=== PATIENT | female | born 1980 | race Caucasian/White ===

== ENCOUNTER 2017-11-24 08:20 | Inpatient (IN) | payer SELFPAY ==
[2017-11-24] MEDS ORDERED: Ondansetron 4 MG/2 ML SDV IVPUSH PRN (08:49)
[2017-11-24] MEDS ORDERED: Nalbuphine 20 MG/ML 1 ML Syringe IVPUSH PRN (08:49)
[2017-11-24] MEDS ORDERED: Sodium Chloride 0.9% 10 ML Syringe FLUSH PRN (08:49)
[2017-11-24] MEDS ORDERED: Oxytocin/Lactated Ringers 10 UNIT/1,000 ML BAG IV SCH ×2 (09:00→10:56)
[2017-11-24] MEDS ORDERED: Lactated Ringers 1,000 ML IV SCH (09:00)
--- NOTE | 2017-11-24 09:28 | PCM.LDHP ---
L&D History of Present Illness - General Date of Service: 11/24/17 Admit Problem/Dx: Patient Status Order with Admit Dx/Problem 11/24/17 08:49 Patient Status [ADT] Routine Admission Diagnosis/Problem Admission Diagnosis/Problem Normal labor Source of Information: Patient History Limitations: Reports: No Limitations - History of Present Illness Introduction:: Janett Garcia is a 36 year old at 40 weeks 5 days by 22 week ultrasound who presents for labor. She reports that she started to have more frequent contractions last evening that were about every 15 minutes apart but were not overly painful and she was able to sleep through the night. This morning when she woke up her contractions were approximately every 2-3 minutes and were more painful. They were lasting approximately 60 seconds at that time. She denies any leaking of fluid but did have bright red blood mixed with the vaginal mucus. She reports that she has felt movement but that it has been somewhat decreased for the last day or so. She denies any significant problems with her asthma and has not been using her inhaler regularly. Timing/Duration: Reports: gradual onset, getting worse Location, : Reports: Abdomen, Pelvic, Uterus Quality: Reports: Throbbing Severity: Moderate Improves with: Reports: None Worsens with: Reports: None Associated Symptoms: Reports: vaginal bleeding, mild amount. Denies: vaginal discharge, vaginal fluid Present Illness Comments:: Janett Garcia is a 36-year-old who presented with spontaneous labor this morning. She has had routine care since her first visit at 22 weeks gestational age with myself. Review of her labs show O+ blood type with negative antibody screen. Her CBC showed a hematocrit of 37.3 and hemoglobin of 13.3 with platelets of 205. She had a negative Pap smear. She is rubella immune. Her RPR, hepatitis B surface antigen and HIV were all negative. Her urine culture was negative. Gonorrhea and Chlamydia test were both negative. Her anatomy ultrasound was normal on 07/31/2017. Repeat check for her CBC on 08/18/2017 showed a hematocrit of 35.8 and hemoglobin of 12.1 with platelets of 189. Her 1 hour glucose tolerance screen was 113. Her GBS was negative. Her has been complicated by advanced maternal age and declined genetic testing, asthma that has at times been somewhat uncontrolled during the but is well controlled at this time, history of depression and was started on Lexapro and her mood has been good on this medication. She received TDaP and 09/25/2017. She also had a history of an unexplained stillbirth at 24 weeks gestational age but declined monitoring during this . Past Medical History Respiratory History: Reports: Asthma L[employer]GR[employer]ER History: Reports: : 6 Para: 4 (4104, stillbirth at 24 WGA in second ) Psychiatric History: Reports: Depression () Social & Family History - Tobacco Use Smoking Status *Q: Former Smoker (stopped in ) Tobacco Use Within Last Twelve Months: Cigarettes - Tobacco Core Measures Tobacco Use/Smoking Within Last 30 Days: No - Alcohol Use Alcohol Use History: No - Sexual History Sexual History: Reports: Single Partner - Living Situation & Occupation Living situation: Reports: H&P Review of Systems - Review of Systems: Review Of Systems: See Below General: Denies: Fever, Chills, Malaise, Weakness, Fatigue HEENT: Denies: Rhinitis, Post Nasal Drip, Sinus Congestion, Sore Throat, Visual Changes Pulmonary: Denies: Shortness of Breath, Wheezing, Cough Cardiovascular: Denies: Chest Pain, Palpitations Gastrointestinal: Reports: Diarrhea. Denies: Abdominal Pain, Constipation, Nausea, Vomiting Genitourinary: Denies: Dysuria, Frequency, Burning, Pain, Urgency Musculoskeletal: Denies: Back Pain, Joint Pain, Muscle Pain Skin: Denies: Rash, Lesions Psychiatric: Denies: Depression, Anxiety Neurological: Denies: Headache Hematologic/Lymphatic: Denies: Anemia, Easy Bleeding, Easy Bruising L&D Exam - Exam Exam: See Below - OB Specific Contraction Duration (sec): 60 Contraction Frequency (min): 2-3 Contraction Intensity: Moderate Movement: Active Heart Tones: Present Heart Tones per Min: 155 (+15 x 15 accelerations, occasional variable decelerations) Heart Rate (FHR) Variability: Moderate (6-25 bmp) Presentation: Vertex Estimated Weight: 7.5-8 by Eder's - Johns Score Johns Score Cervix Position: Anterior Johns Score Consistency: Soft Johns Score Effacement: >80% Johns Score Dilation: > 5 cm (5) Johns Score 's Station: -2 Johns Score Total: 11 - Exam General: Alert, Oriented HEENT: Conjunctiva Clear, EOMI Neck: Supple, Trachea Midline Lungs: Clear to Auscultation, Normal Respiratory Effort Cardiovascular: Regular Rate, Regular Rhythm GI/Abdominal Exam: Soft, Non-Tender, No Distention. No: Guarding, Rigid, Rebound Genitourinary: Normal external exam Back Exam: Normal Inspection, Full Range of Motion Extremities: Normal Inspection, Pedal Edema (Trace) Skin: Warm, Dry, Intact Psychiatric: Alert, Normal Affect, Normal Mood - Patient Data Lab Results Last 24 hrs: Laboratory Results - last 24 hr 11/24/17 Range/Units 09:05 WBC 13.83 H (3.98-10.04) K/mm3 RBC 4.13 (3.98-5.22) M/mm3 Hgb 12.8 (11.2-15.7) gm/L Hct 37.8 (34.1-44.9) % MCV 91.5 (79.4-94.8) fl MCH 31.0 (25.6-32.2) pg MCHC 33.9 (32.2-35.5) g/dl RDW Std Deviation 46.2 (36.4-46.3) fL Plt Count 166 L (182-369) K/mm3 MPV 10.9 (9.4-12.3) fl Neut % (Auto) 82.4 H (34.0-71.1) % Lymph % (Auto) 9.9 L (19.3-51.7) % Graham % (Auto) 6.5 (4.7-12.5) % Eos % (Auto) 0.8 (0.7-5.8) Baso % (Auto) 0.1 (0.1-1.2) % Neut # (Auto) 11.39 H (1.56-6.13) K/mm3 Lymph # (Auto) 1.37 (1.18-3.74) K/mm3 Graham # (Auto) 0.90 H (0.24-0.36) K/mm3 Eos # (Auto) 0.11 (0.04-0.36) K/mm3 Baso # (Auto) 0.02 (0.01-0.08) K/mm3 Result Diagrams: 11/24/17 09:05 - Problem List (1) 40 weeks gestation of SNOMED Code(s): 83642708 ICD Code: Z3A.40 - 40 WEEKS GESTATION OF Status: Acute Current Visit: Yes (2) Advanced maternal age in multigravida SNOMED Code(s): 074010001 ICD Code: O09.529 - SUPERVISION OF ELDERLY MULTIGRAVIDA, UNSPECIFIED TRIMESTER Status: Acute Current Visit: Yes (3) Asthma affecting in third trimester SNOMED Code(s): 209440705, 620422874 ICD Code: O99.513 - DISEASES OF THE RESP SYS COMP , THIRD TRIMESTER ; J45.909 - UNSPECIFIED ASTHMA, UNCOMPLICATED Status: Acute Current Visit: Yes (4) Late care affecting SNOMED Code(s): 245072995 ICD Code: O09.30 - SUPRVSN OF PREG W INSUFFICIENT ANTENAT CARE, UNSP TRIMESTER Status: Acute Current Visit: Yes (5) History of depression, currently SNOMED Code(s): 921283748 ICD Code: O99.89 - OTH DISEASES AND CONDITIONS COMPL PREG/CHLDBRTH; Z86.59 - PERSONAL HISTORY OF OTHER MENTAL AND BEHAVIORAL DISORDERS Status: Acute Current Visit: Yes Problem List Initiated/Reviewed/Updated: Yes Orders Last 24hrs: Active Orders 24 hr Category Date Time Status Patient Status [ADT] Routine ADT 11/24/17 08:49 Active Activity as Tolerated [RC] PFP Care 11/24/17 08:49 Active Communication Order [RC] ASDIRECTED Care 11/24/17 08:49 Active Heart Tones [RC] ASDIRECTED Care 11/24/17 08:50 Active Non Stress Test [RC] PER UNIT ROUTINE Care 11/24/17 08:49 Active Notify Provider [RC] PFP Care 11/24/17 08:49 Active Notify Provider [RC] PRN Care 11/24/17 08:49 Active Peripheral IV Care [RC] . DIRECTED Care 11/24/17 08:50 Active Vital Signs [RC] PER UNIT ROUTINE Care 11/24/17 08:49 Active CBC WITH AUTO DIFF [HEME] Stat Lab 11/24/17 09:05 Results DRUG SCREEN, URINE [URCHEM] Stat Lab 11/24/17 08:49 Ordered RAPID PLASMA REAGIN,RPR [CHEM] Stat Lab 11/24/17 09:05 Received UA W/O MICROSCOPIC [URIN] Stat Lab 11/24/17 08:49 Ordered Lactated Ringers [Ringers, Lactated] 1,000 ml Med 11/24/17 09:00 Pending IV ASDIRECTED Lidocaine 1% [Xylocaine 1%] Med 11/24/17 08:49 Once 20 ml INJECT ONETIME ONE Nalbuphine [Nubain] Med 11/24/17 08:49 Ordered 10 mg IVPUSH Q2H PRN Ondansetron [Zofran] Med 11/24/17 08:49 Ordered 4 mg IVPUSH Q4H PRN Oxytocin/Lactated Ringers [Pitocin in LR 10 Units/1,000 Med 11/24/17 09:00 Ordered ML] 10 unit in 1,000 ml IV .CONTINUOUS Sodium Chloride 0.9% [Saline Flush] Med 11/24/17 08:49 Ordered 10 ml FLUSH ASDIRECTED PRN Electronic Heart Tones Ext w TOCO [WOMSER] Oth 11/24/17 08:49 Ordered Routine Electronic Heart Tones Internal [WOMSER] Per Unit Oth 11/24/17 08:49 Ordered Routine Peripheral IV Insertion Adult [OM.PC] Routine Oth 11/24/17 08:49 Ordered Resuscitation Status Routine Resus Stat 11/24/17 08:49 Ordered Medication Orders Lactated Ringer's (Ringers, Lactated) 1,000 mls @ 100 mls/hr IV ASDIRECTED MAGAN Oxytocin/Lactated Ringer's (Pitocin In Lr 10 Units/1,000 Ml) 10 unit in 1,000 mls @ 500 mls/hr IV .CONTINUOUS MAGAN Lidocaine HCl (Xylocaine 1%) 20 ml INJECT ONETIME ONE Stop: 11/24/17 08:50 Nalbuphine HCl (Nubain) 10 mg IVPUSH Q2H PRN PRN Reason: pain Ondansetron HCl (Zofran) 4 mg IVPUSH Q4H PRN PRN Reason: Nausea/Vomiting Sodium Chloride (Saline Flush) 10 ml FLUSH ASDIRECTED PRN PRN Reason: Keep Vein Open Assessment/Plan Comment:: At time of cervical exam the patient was 5/90/-2/soft/anterior. There was a bulging bag of water with the contraction that the patient was having. Artificial rupture membranes was performed with the AmniHook with return of clear fluid. Mom and baby tolerated procedure well without any difficulty. We will continue to monitor how patient's labor is progressing without augmentation with Pitocin for several hours and if no cervical change then we' ll start her on Pitocin for augmentation of labor. Refer to observation for spontaneous labor with cervical dilation of 5 cm Start Pitocin for augmentation of labor if no cervical change in 3-[address] IV and have Lactated Ringer's at 125 ml/hr May have small amounts of regular diet Activity as tolerated May have epidural as desired Plans to bottle feed after delivery Albuterol inhaler as needed for asthma Anticipate vaginal delivery unless otherwise indicated Alex Liang M.D. 9:38 AM 11/24/2017
[2017-11-24] MEDS ORDERED: Oxytocin/Lactated Ringers 10 UNIT/1,000 ML BAG IV ONE (10:12)
--- NOTE | 2017-11-24 10:39 | PCM.SN ---
- Free Text/Narrative Note: Stage I: Janett Garcia was admitted for spontaneous labor. On admission her cervix was dilated to 5 cm. She was GBS negative. She had artificial rupture membranes with clear fluid. She progressed to complete and pushing. Stage II: On 11/24/2017 she had a normal vaginal delivery of a live female infant at 1019. Apgars of 8 & 9. Weight of 3570 g (7 lbs 14 oz). Length of 20.5 inches. There was a single nuchal cord that was reduced prior to delivery. was delivered in NATASHA position. The cord was doubly clamped and cut by father of the infant. Infant was placed on mother's abdomen. Stage III: She had a spontaneous delivery of an intact placenta in Roland presentation. Three vessel cord. She was given pitocin and fundal massage. She had first-degree midline perineal laceration at the vaginal introitus that was hemostatic and not repaired and a abrasion to the left labia minora that was also hemostatic and not repaired. Mom and baby were stable to recovery. EBL of 150 mL. Alex Liang MD 10:38 AM 11/24/2017
[2017-11-24] MEDS ORDERED: Acetaminophen 325 MG Tab PO PRN (10:56)
[2017-11-24] MEDS ORDERED: Benzocaine/Menthol 20%-0.5% Spray 56 GM Canister TOP PRN (10:56)
[2017-11-24] MEDS ORDERED: Lanolin 100% Cream 7 GM Tube TOP PRN (10:56)
[2017-11-24] MEDS ORDERED: Witch Hazel Medicated Pads 100/Jar TOP PRN (10:56)
[2017-11-24] MEDS ORDERED: Magnesium Hydroxide 400 MG/5 ML Susp 30 ML Cup PO PRN (10:56)
[2017-11-24] MEDS ORDERED: Hydrocortisone Acetate 25 MG Supp RECTAL PRN (10:56)
[2017-11-24] MEDS ORDERED: Docusate Sodium 100 MG Cap PO PRN (10:56)
[2017-11-24] MEDS ORDERED: Lidocaine 1% 50 ML MDV INJECT ONE (13:00)
[2017-11-24] MEDS: Ibuprofen 600 MG Tab PO PRN ×2 (15:20→22:10)
[2017-11-25] MEDS: Ibuprofen 600 MG Tab PO PRN ×2 (04:27→11:53)
[2017-11-25] MEDS ORDERED: Cyclobenzaprine 10 MG Tab PO PRN (08:36)
--- NOTE | 2017-11-25 08:50 | PCM.SN ---
- Free Text/Narrative Note: Post Progress Note PPD # 1 Subjective: Doing well overall. Ambulating without difficulty. Lochia minimal. Voiding without difficulty. Tolerating regular diet without nausea or vomiting. Pain minimal and able to be controlled with oral medications. She reports that she does have some pain when she tightens her abdominal muscles on the left side of her abdomen. Bottle feeding with minimal difficulty. Objective: Vitals: Vital Signs - 24 hr 11/24/17 11/24/17 11/24/17 09:02 09:30 10:54 Temperature Pulse, 83 68 Peripheral Respiratory Rate Blood Pressure 112/64 O2 Sat by Pulse Oximetry 11/24/17 11/24/17 11/24/17 11:00 11:31 12:00 Temperature Pulse, 84 79 74 Peripheral Respiratory Rate Blood Pressure 112/80 128/69 116/78 O2 Sat by Pulse Oximetry 11/24/17 11/24/17 11/25/17 15:24 20:01 04:22 Temperature 37.0 C 37.1 C 36.8 C Pulse, 94 63 58 L Peripheral Respiratory 16 16 16 Rate Blood Pressure 110/68 116/73 107/70 O2 Sat by Pulse 98 99 98 Oximetry Physical Exam General: Alert and oriented, no acute distress Lungs: Clear to auscultation bilaterally Heart: Regular rate and rhythm Abdomen: Soft, minimal appropriate tenderness, non-distended, fundus midline, nontender, and at the umbilicus Extremities: Trace edema in bilateral lower extremities to mid shins Laboratory Tests 11/24/17 11/24/17 11/24/17 Range/Units 09:05 09:05 13:40 WBC 13.83 H (3.98-10.04) K/mm3 RBC 4.13 (3.98-5.22) M/mm3 Hgb 12.8 (11.2-15.7) gm/L Hct 37.8 (34.1-44.9) % MCV 91.5 (79.4-94.8) fl MCH 31.0 (25.6-32.2) pg MCHC 33.9 (32.2-35.5) g/dl RDW Std Deviation 46.2 (36.4-46.3) fL Plt Count 166 L (182-369) K/mm3 MPV 10.9 (9.4-12.3) fl Neut % (Auto) 82.4 H (34.0-71.1) % Lymph % (Auto) 9.9 L (19.3-51.7) % Edgar % (Auto) 6.5 (4.7-12.5) % Eos % (Auto) 0.8 (0.7-5.8) Baso % (Auto) 0.1 (0.1-1.2) % Neut # (Auto) 11.39 H (1.56-6.13) K/mm3 Lymph # (Auto) 1.37 (1.18-3.74) K/mm3 Edgar # (Auto) 0.90 H (0.24-0.36) K/mm3 Eos # (Auto) 0.11 (0.04-0.36) K/mm3 Baso # (Auto) 0.02 (0.01-0.08) K/mm3 Manual Slide Review Abnormal smear Urine Opiates Screen Negative (NEGATIVE) Ur Buprenorphine Scrn Negative (NEGATIVE) Ur Oxycodone Screen Negative (NEGATIVE) Urine Methadone Screen Negative (NEGATIVE) Ur Propoxyphene Screen Negative (NEGATIVE) Ur Barbiturates Screen Negative (NEGATIVE) Ur Tricyclics Screen Negative (NEGATIVE) Ur Phencyclidine Scrn Negative (NEGATIVE) Ur Amphetamine Screen Negative (NEGATIVE) U Methamphetamines Scrn Negative (NEGATIVE) U Benzodiazepines Scrn Negative (NEGATIVE) U Cocaine Metab Screen Negative (NEGATIVE) U Marijuana (THC) Screen Negative (NEGATIVE) RPR Non-reactive (NONREACTIVE) ASSESSMENT: 36-year-old female G 6 P 5105 s/p normal vaginal delivery PPD #1, complicated by asthma, history of depression, advanced maternal age and declined genetic screening, late care PLAN: Doing well Bottle feeding with minimal difficulty. Assist as needed Lochia minimal. Continue to monitor for appropriate lochia. Continue routine care We will give her a dose of cyclobenzaprine 10 mg this morning to see if this helps with her abdominal muscle pain Anticipate discharge home today Alex Liang MD 8:49 AM 11/25/2017
--- NOTE | 2017-11-25 08:53 | PCM.DCSUM1 ---
Discharge Summary - Hospital Course Free Text/Narrative:: Stage I: Janett Garcia was admitted for spontaneous labor. On admission her cervix was dilated to 5 cm. She was GBS negative. She had artificial rupture membranes with clear fluid. She progressed to complete and pushing. Stage II: On 11/24/2017 she had a normal vaginal delivery of a live female at 1019. Apgars of 8 & 9. Weight of 3570 g (7 lbs 14 oz). Length of 20.5 inches. There was a single nuchal cord that was reduced prior to delivery. Infant was delivered in NATASHA position. The cord was doubly clamped and cut by father of the . Infant was placed on mother's abdomen. Stage III: She had a spontaneous delivery of an intact placenta in Roland presentation. Three vessel cord. She was given pitocin and fundal massage. She had first-degree midline perineal laceration at the vaginal introitus that was hemostatic and not repaired and a abrasion to the left labia minora that was also hemostatic and not repaired. Mom and baby were stable to recovery. EBL of 150 mL. HPI Initial Comments: Stage I: Janett Garcia was admitted for spontaneous labor. On admission her cervix was dilated to 5 cm. She was GBS negative. She had artificial rupture membranes with clear fluid. She progressed to complete and pushing. Stage II: On 11/24/2017 she had a normal vaginal delivery of a live female infant at 1019. Apgars of 8 & 9. Weight of 3570 g (7 lbs 14 oz). Length of 20.5 inches. There was a single nuchal cord that was reduced prior to delivery. Infant was delivered in NATASHA position. The cord was doubly clamped and cut by father of the infant. Infant was placed on mother's abdomen. Stage III: She had a spontaneous delivery of an intact placenta in Roland presentation. Three vessel cord. She was given pitocin and fundal massage. She had first-degree midline perineal laceration at the vaginal introitus that was hemostatic and not repaired and a abrasion to the left labia minora that was also hemostatic and not repaired. Mom and baby were stable to recovery. EBL of 150 mL. Brief History: Stage I: Janett Garcia was admitted for spontaneous labor. On admission her cervix was dilated to 5 cm. She was GBS negative. She had artificial rupture membranes with clear fluid. She progressed to complete and pushing. Stage II: On 11/24/2017 she had a normal vaginal delivery of a live female infant at 1019. Apgars of 8 & 9. Weight of 3570 g (7 lbs 14 oz). Length of 20.5 inches. There was a single nuchal cord that was reduced prior to delivery. Infant was delivered in NATASHA position. The cord was doubly clamped and cut by father of the infant. Infant was placed on mother's abdomen. Stage III: She had a spontaneous delivery of an intact placenta in Roland presentation. Three vessel cord. She was given pitocin and fundal massage. She had first- degree midline perineal laceration at the vaginal introitus that was hemostatic and not repaired and a abrasion to the left labia minora that was also hemostatic and not repaired. Mom and baby were stable to recovery. EBL of 150 mL. Diagnosis: Stroke: No - Discharge Data Discharge Date: 11/25/17 Discharge Disposition: Home, Self-Care 01 Condition: Good - Discharge Diagnosis/Problem(s) (1) 40 weeks gestation of SNOMED Code(s): 66078487 ICD Code: Z3A.40 - 40 WEEKS GESTATION OF Status: Acute Current Visit: Yes (2) Advanced maternal age in multigravida SNOMED Code(s): 797494475 ICD Code: O09.529 - SUPERVISION OF ELDERLY MULTIGRAVIDA, UNSPECIFIED TRIMESTER Status: Acute Current Visit: Yes (3) Asthma affecting in third trimester SNOMED Code(s): 698224673, 660453829 ICD Code: O99.513 - DISEASES OF THE RESP SYS COMP , THIRD TRIMESTER ; J45.909 - UNSPECIFIED ASTHMA, UNCOMPLICATED Status: Acute Current Visit: Yes (4) Late care affecting SNOMED Code(s): 471781842 ICD Code: O09.30 - SUPRVSN OF PREG W INSUFFICIENT ANTENAT CARE, UNSP TRIMESTER Status: Acute Current Visit: Yes (5) History of depression, currently SNOMED Code(s): 922621594 ICD Code: O99.89 - OTH DISEASES AND CONDITIONS COMPL PREG/CHLDBRTH; Z86.59 - PERSONAL HISTORY OF OTHER MENTAL AND BEHAVIORAL DISORDERS Status: Acute Current Visit: Yes (6) Vaginal delivery SNOMED Code(s): 806139121 ICD Code: O80 - ENCOUNTER FOR FULL-TERM UNCOMPLICATED DELIVERY Status: Acute Current Visit: Yes (7) First degree perineal laceration during delivery SNOMED Code(s): 404879075 ICD Code: O70.0 - FIRST DEGREE PERINEAL LACERATION DURING DELIVERY Status: Acute Current Visit: Yes - Patient Summary/Data Complications: None Consults: None Hospital Course: Janett Garcia was admitted for spontaneous labor. On admission her cervix was dilated to 5 cm. She was GBS negative. She had artificial rupture of membranes with clear fluid. She progressed to complete and began pushing. On 11/24/2017 she had a normal vaginal delivery of a live female infant at 1019. Apgars of 8 & 9. Weight of 3570 g (7 lbs. 14 oz.). Her course was uneventful. Her pain was well controlled and she had minimal lochia. She was ambulating, tolerating a regular diet and voiding normally. She was bottle feeding. She was afebrile and her hematocrit was 37.8 on admission. She desired to be discharged home on the morning of PPD #1. Her blood type is O positive. - Patient Instructions Diet: Regular Diet as Tolerated Activity: Apply Ice, As Tolerated Activity, Other: Nothing in the vagina for 6 weeks Driving: May Drive Today Showering/Bathing: May Shower Notify Provider of: Fever, Increased Pain, Swelling and Redness, Drainage, Nausea and/or Vomiting Other/Special Instructions: Contact our office if you have heavy vaginal bleeding enough to soak a pad in less than an hour for several hours. - Discharge Plan *PRESCRIPTION DRUG MONITORING PROGRAM REVIEWED*: Not Applicable *COPY OF PRESCRIPTION DRUG MONITORING REPORT IN PATIENT LILLIE: Not Applicable Home Medications: Home Meds Albuterol [Proventil Neb Soln] 2 puff .ROUTE DAILY PRN 11/24/17 [History] Cyclobenzaprine HCl 1 tab PO DAILY 11/24/17 [History] Escitalopram Oxalate 1 tab PO DAILY 11/24/17 [History] Montelukast [Singulair] 1 tab PO DAILY 11/24/17 [History] Vit W-Ca,Fe,FA(<1 mg) [ Vitamins] 1 tab PO DAILY 11/24/17 [ History] Acetaminophen [Tylenol] 650 mg PO Q6H PRN tablet 11/25/17 [Rx] Benzocaine/Menthol [Dermoplast Pain Relief [place]] 1 spray TOP ASDIRECTED PRN canister 11/25/17 [Rx] Docusate Sodium [Colace] 100 mg PO BID PRN cap 11/25/17 [Rx] Hydrocortisone Acetate [Anucort-HC] 25 mg RECTAL BID PRN supp 11/25/17 [Rx] Ibuprofen [Motrin] 600 mg PO Q6H PRN tablet 11/25/17 [Rx] Lanolin [Lansinoh HPA] 1 applic TOP ASDIRECTED PRN tube 11/25/17 [Rx] Witch Colette [Tucks] 1 pad TOP ASDIRECTED PRN pad 11/25/17 [Rx] Patient Handouts: What You Need to Know About Formula Feeding, Home Care Instructions for Mom, Vaginal Delivery, Care After Referrals: Alex Liang MD [Primary Care Provider] - (Follow-up for visit in 3 -6 weeks.) - Patient Data Vitals - Most Recent: Last Vital Signs Temp 36.8 C 11/25/17 04:22 Pulse 58 L 11/25/17 04:22 Resp 16 11/25/17 04:22 BP 107/70 11/25/17 04:22 Pulse Ox 98 11/25/17 04:22 Weight - Most Recent: 102.058 kg Lab Results - Last 24 hrs: Laboratory Results - last 24 hr 11/24/17 11/24/17 11/24/17 Range/Units 09:05 09:05 13:40 WBC 13.83 H (3.98-10.04) K/mm3 RBC 4.13 (3.98-5.22) M/mm3 Hgb 12.8 (11.2-15.7) gm/L Hct 37.8 (34.1-44.9) % MCV 91.5 (79.4-94.8) fl MCH 31.0 (25.6-32.2) pg MCHC 33.9 (32.2-35.5) g/dl RDW Std Deviation 46.2 (36.4-46.3) fL Plt Count 166 L (182-369) K/mm3 MPV 10.9 (9.4-12.3) fl Neut % (Auto) 82.4 H (34.0-71.1) % Lymph % (Auto) 9.9 L (19.3-51.7) % [place] % (Auto) 6.5 (4.7-12.5) % Eos % (Auto) 0.8 (0.7-5.8) Baso % (Auto) 0.1 (0.1-1.2) % Neut # (Auto) 11.39 H (1.56-6.13) K/mm3 Lymph # (Auto) 1.37 (1.18-3.74) K/mm3 [place] # (Auto) 0.90 H (0.24-0.36) K/mm3 Eos # (Auto) 0.11 (0.04-0.36) K/mm3 Baso # (Auto) 0.02 (0.01-0.08) K/mm3 Manual Slide Review Abnormal smear Urine Opiates Screen Negative (NEGATIVE) Ur Buprenorphine Scrn Negative (NEGATIVE) Ur Oxycodone Screen Negative (NEGATIVE) Urine Methadone Screen Negative (NEGATIVE) Ur Propoxyphene Screen Negative (NEGATIVE) Ur Barbiturates Screen Negative (NEGATIVE) Ur Tricyclics Screen Negative (NEGATIVE) Ur Phencyclidine Scrn Negative (NEGATIVE) Ur Amphetamine Screen Negative (NEGATIVE) U Methamphetamines Scrn Negative (NEGATIVE) U Benzodiazepines Scrn Negative (NEGATIVE) U Cocaine Metab Screen Negative (NEGATIVE) U Marijuana (THC) Screen Negative (NEGATIVE) RPR Non-reactive (NONREACTIVE) Med Orders - Current: Current Medications Acetaminophen (Tylenol) 650 mg PO Q6H PRN PRN Reason: mild pain or fever Last Admin: 11/24/17 20:05 Dose: 650 mg Benzocaine/Menthol (Dermoplast Pain Relief [place]) 0 gm TOP ASDIRECTED PRN PRN Reason: Perineal Comfort Measure Last Admin: 11/24/17 11:45 Dose: 1 can Cyclobenzaprine HCl (Flexeril) 10 mg PO TID PRN PRN Reason: Muscle Spasm Docusate Sodium (Colace) 100 mg PO BID PRN PRN Reason: Constipation Emollient Ointment (Lansinoh Hpa) 0 gm TOP ASDIRECTED PRN PRN Reason: Sore Nipples Hydrocortisone Acetate (Anucort-Hc) 25 mg RECTAL BID PRN PRN Reason: Hemorrhoid pain Oxytocin/Lactated Ringer's (Pitocin In Lr 10 Units/1,000 Ml) 10 unit in 1,000 mls @ 100 mls/hr IV TITRATE MAGAN; Protocol Ibuprofen (Motrin) 600 mg PO Q6H PRN PRN Reason: Mild pain or fever Last Admin: 11/25/17 04:27 Dose: 600 mg Magnesium Hydroxide (Milk Of Magnesia) 30 ml PO BEDTIME PRN PRN Reason: Constipation Witch Colette (Tucks) 1 pad TOP ASDIRECTED PRN PRN Reason: Hemorrhoid pain Last Admin: 11/24/17 11:45 Dose: 1 jar Discontinued Medications Lactated Ringer's (Ringers, Lactated) 1,000 mls @ 100 mls/hr IV ASDIRECTED MAGAN Last Admin: 11/24/17 09:15 Dose: 999 mls/hr Oxytocin/Lactated Ringer's (Pitocin In Lr 10 Units/1,000 Ml) 10 unit in 1,000 mls @ 500 mls/hr IV .CONTINUOUS MAGAN Last Admin: 11/24/17 10:19 Dose: 500 mls/hr Oxytocin/Lactated Ringer's (Pitocin In Lr 10 Units/1,000 Ml) Confirm Administered Dose 10 unit in 1,000 mls @ as directed IV .STK-MED ONE Stop: 11/24/17 10:13 Last Admin: 11/24/17 14:12 Dose: Not Given Lidocaine HCl (Xylocaine 1%) 20 ml INJECT ONETIME ONE Stop: 11/24/17 13:01 Nalbuphine HCl (Nubain) 10 mg IVPUSH Q2H PRN PRN Reason: pain Ondansetron HCl (Zofran) 4 mg IVPUSH Q4H PRN PRN Reason: Nausea/Vomiting Sodium Chloride (Saline Flush) 10 ml FLUSH ASDIRECTED PRN PRN Reason: Keep Vein Open
== END 2017-11-25 12:15 | disposition home or self-care (01) | DRG 775 ==
LOC: JD.OBCHECK 08:20 → JD.OB 08:20 → JD.OBCHECK 08:49 → JD.OB 08:49 → OBSVTOIN 10:19 → JD.OB 10:20
PROVIDERS: ADMIT Obstetrics & Gynecology; ATTEND Obstetrics & Gynecology
PROC: 10E0XZZ Delivery of Products of Conception, External Approach (ICD-10-PCS; principal; 2017-11-24)
PROC: 10907ZC Drainage of Amniotic Fluid, Therapeutic from Products of Conception, Via Natural or Artificial Opening (ICD-10-PCS; 2017-11-24)
DX: O48.0 Post-term pregnancy (principal); O69.81X0 Labor and delivery complicated by cord around neck, without compression, not applicable or unspecified; Z37.0 Single live birth; O70.0 First degree perineal laceration during delivery; Z3A.40 40 weeks gestation of pregnancy; O99.52 Diseases of the respiratory system complicating childbirth; J45.909 Unspecified asthma, uncomplicated; Z87.891 Personal history of nicotine dependence; O99.344 Other mental disorders complicating childbirth; F32.9 Major depressive disorder, single episode, unspecified
CPT/HCPCS: 36415; 59025; 59409; 80306; 85025; 86592; A9270-GY; J2590; J7120

== ENCOUNTER 2019-06-21 11:21 | Inpatient (IN) | payer BC ==
[2019-06-21] MEDS ORDERED: Sodium Chloride 0.9% 10 ML Syringe FLUSH PRN (11:55)
[2019-06-21] MEDS ORDERED: Lactated Ringers 1,000 ML IV SCH (12:00)
[2019-06-21] MEDS ORDERED: Oxytocin/Lactated Ringers 10 UNIT/1,000 ML BAG IV SCH ×2 (12:00→12:30)
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
--- NOTE | 2019-06-21 19:22 | PCM.SN ---
- Free Text/Narrative Note: Delivery note: Janett is a 38-year-old 7 now para 6106 (1 stillborn at 24 weeks) who is admitted at 39-2/7 weeks gestational age for Pitocin/artificial rupture membranes induction of labor on 06/21/2019. Initial evaluation found the head to be at a -3 station and not well applied to the cervix. She was given Pitocin via IV which brought the baby's head down. At approximately 1730 hrs. patient was 4 cm dilated, -3 station but with the head well applied to the cervix. She underwent artificial rupture membranes with resultant clear amniotic fluid. She delivered a meneses, viable, female infant with Apgars of 8 and 9, a weight of 3450 g (7 lbs. 10 oz.), length of 20.0 inches in a direct occiput anterior position over an intact perineum. Pitocin was increased 500 mL per hour per protocol to facilitate increase in uterine tone and decrease likelihood of bleeding. The baby was placed on mom's abdomen and nose and mouth bulb suctioned. The cord blood pulsate for approximately 2 minutes and then was clamped 2 and cut by the baby's father Zac. The umbilical cord had 3 vessels. Cord blood was obtained. The perineum was found to be intact. No suturing was required. The placenta delivered in a Crawley presentation, appeared intact and complete and was discarded per patient desire. Estimated blood loss was 100 mL. Condition: Good. Patient plans to bottlefeed.
[2019-06-21] MEDS ORDERED: Benzocaine/Menthol 20%-0.5% Spray 56 GM Canister TOP PRN (19:38)
[2019-06-21] MEDS ORDERED: Acetaminophen 325 MG Tab PO PRN (19:38)
[2019-06-21] MEDS ORDERED: Witch Hazel Medicated Pads 40/Jar TOP PRN (19:38)
[2019-06-21] MEDS ORDERED: Docusate Sodium 100 MG Cap PO PRN (19:38)
[2019-06-21] MEDS: Ibuprofen 600 MG Tab PO PRN (20:50)
[2019-06-22] MEDS: Ibuprofen 600 MG Tab PO PRN ×4 (01:17→21:40)
[2019-06-22] MEDS: Prenatal Multivitamin with Calcium/Folic Acid/Iron Tab PO SCH (09:03)
[2019-06-22] MEDS: Montelukast 10 MG Tab PO SCH (09:04)
--- NOTE | 2019-06-22 11:09 | PCM.PNPP ---
- General Info Date of Service: 06/22/19 Admission Dx/Problem (Free Text): 38-year-old white female [id number] was admitted following an induction of labor via pitocin and ROM at 39 weeks gestation. No epidural was used due to prior difficulty in previous related to T12 spinal fusion. resulted in healthy baby girl, Dimple. Both mother and baby doing well. Trace vaginal/uterine bleeding (no tear). Ambulating and urinating, but no bowel movement yet since delivery. Patient states she has very minimal pain and notes that "this delivery was much easier than previous deliveries." Mother plans to bottle feed. She would like to go home today as she is feeling very good and would like to see her other children. Functional Status: Reports: Pain Controlled, Tolerating Diet, Ambulating, Urinating - Review of Systems General: Reports: No Symptoms HEENT: Reports: No Symptoms Pulmonary: Reports: No Symptoms Cardiovascular: Reports: No Symptoms Gastrointestinal: Reports: No Symptoms Genitourinary: Reports: No Symptoms Musculoskeletal: Reports: No Symptoms Skin: Reports: No Symptoms Neurological: Reports: No Symptoms Psychiatric: Reports: No Symptoms - General Info Date of Service: 06/22/19 - Patient Data Vital Signs - Most Recent: Last Vital Signs Temp 97.7 F 06/22/19 09:10 Pulse 78 06/22/19 09:10 Resp 18 06/22/19 09:10 BP 111/72 06/22/19 09:10 Pulse Ox 100 06/22/19 09:10 Weight - Most Recent: 230 lb I&O - Last 24 Hours: Intake & Output 06/21/19 06/22/19 06/22/19 22:59 06:59 14:59 Intake Total 1380 240 Balance 1380 240 Lab Results - Last 24 Hours: Laboratory Results - last 24 hr 06/21/19 06/21/19 Range/Units 13:15 13:15 WBC 10.18 H (3.98-10.04) K/mm3 RBC 4.26 (3.98-5.22) M/mm3 Hgb 13.2 (11.2-15.7) gm/dl Hct 38.7 (34.1-44.9) % MCV 90.8 (79.4-94.8) fl MCH 31.0 (25.6-32.2) pg MCHC 34.1 (32.2-35.5) g/dl RDW Std Deviation 44.5 (36.4-46.3) fL Plt Count 202 (182-369) K/mm3 MPV 10.8 (9.4-12.3) fl RPR Non-reactive (NONREACTIVE) Med Orders - Current: Current Medications Acetaminophen (Tylenol) 650 mg PO Q4H PRN PRN Reason: mild pain or fever Albuterol (Proventil Hfa) 0 gm INH Q4H PRN PRN Reason: SHORTNESS OF BREATH Benzocaine/Menthol (Dermoplast Pain Relief [place]) 0 gm TOP ASDIRECTED PRN PRN Reason: Perineal Comfort Measure Last Admin: 06/21/19 20:55 Dose: 1 canister Docusate Sodium (Colace) 100 mg PO BID PRN PRN Reason: Constipation Ibuprofen (Motrin) 600 mg PO Q4H PRN PRN Reason: Mild pain or fever Last Admin: 06/22/19 04:53 Dose: 600 mg Montelukast Sodium (Singulair) 10 mg PO DAILY [facility] Last Admin: 06/22/19 09:04 Dose: Not Given Prenat Multivit/Orthopedic Physical Therapist/Iron/Folic Ac ( Plus Iron) 1 each PO DAILY [facility] Last Admin: 06/22/19 09:03 Dose: 1 each Witch Colette (Tucks) 1 pad TOP ASDIRECTED PRN PRN Reason: Perineal Comfort Measure Last Admin: 06/21/19 20:56 Dose: 1 container Discontinued Medications Lactated Ringer's (Ringers, Lactated) 1,000 mls @ 100 mls/hr IV ASDIRECTED [facility] Last Admin: 06/21/19 12:55 Dose: 100 mls/hr Oxytocin/Lactated Ringer's (Pitocin In Lr 10 Units/1,000 Ml) 10 unit in 1,000 mls @ 500 mls/hr IV .CONTINUOUS [facility] Oxytocin/Lactated Ringer's (Pitocin In Lr 10 Units/1,000 Ml) 10 unit in 1,000 mls @ 12 mls/hr IV TITRATE MAGAN; Protocol Last Titration: 06/21/19 18:24 Dose: 0 munits/min, 0 mls/hr Sodium Chloride (Saline Flush) 10 ml FLUSH ASDIRECTED PRN PRN Reason: Keep Vein Open - Infant Interaction Disposition, : [place] in Room with Family (baby in mother's lap on the bed) Interaction: Holding Infant Feeding: Bottle Fed Infant Support Person: - Recovery Exam Fundal Tone: Firm Fundal Level: 2 Fingerbreadths Below Umbilicus Fundal Placement: Midline Lochia Amount: Scant Lochia Color: Rubra/Red Perineum Description: Intact, Minimal Bruising/Swelling Episiotomy/Laceration: None Bladder Status: Voiding Urinary Elimination: Voided - Exam General: Alert, Oriented HEENT: Pupils Equal, EOMI, Mucous Membr. Moist/Millard Lungs: Normal Respiratory Effort Cardiovascular: Regular Rate, Regular Rhythm Extremities: Normal Inspection Skin: Warm, Dry, Intact Neurological: No New Focal Deficit Psy/Mental Status: Alert, Normal Affect, Normal Mood - Problem List & Annotations (1) Elective induction of labor planned SNOMED Code(s): 321029216 Code(s): IFU9493 - Status: Acute Current Visit: Yes (2) Advanced maternal age in multigravida SNOMED Code(s): 843732136 Code(s): O09.529 - SUPERVISION OF ELDERLY MULTIGRAVIDA, UNSPECIFIED TRIMESTER Status: Acute Current Visit: No (3) Asthma affecting in third trimester SNOMED Code(s): 080240004, 665213202 Code(s): O99.513 - DISEASES OF THE RESP SYS COMP , THIRD TRIMESTER; J45.909 - UNSPECIFIED ASTHMA, UNCOMPLICATED Status: Acute Current Visit: No (4) History of depression, currently SNOMED Code(s): 325505956 Code(s): O99.89 - OTH DISEASES AND CONDITIONS COMPL PREG/CHLDBRTH; Z86.59 - PERSONAL HISTORY OF OTHER MENTAL AND BEHAVIORAL DISORDERS Status: Acute Current Visit: No - Problem List Review Problem List Initiated/Reviewed/Updated: Yes - Plan Plan:: Assessment: 1. 39 2/7 week intrauterine admitted for induction of labor. 2. Group B strep negative 3. Patient plans to bottlefeed. Had previously thought about breast-feeding. 4. Desires natural labor however on Nubain or other analgesia may be desired if needed. 5. Rubella immune. Patient has received her flu vaccination and her T-dap 6. Factors include the following: History of stillborn, grand multiparity, age 38. Plan: 1. Pitocin/artificial rupture membranes induction of labor. 2. Anticipate Normal spontaneous vaginal delivery. 3. Nubain or fentanyl for pain control as needed 4. CBC and RPR upon admission per protocol. 06/22/2019 1. on 06/21/2019 2. Pain controlled. 3. Bottle feeding. 4. Discharge today.
[2019-06-22] MEDS ORDERED: Albuterol 6.7 GM Inhaler **PTOM INH PRN (19:11)
--- NOTE | 2019-06-23 06:12 | PCM.DCSUM1 ---
Discharge Summary - Hospital Course Free Text/Narrative:: Janett is a 38-year-old 7 now para 6106 (1 stillborn at 24 weeks) who is admitted at 39-2/7 weeks gestational age for Pitocin/artificial rupture membranes induction of labor on 06/21/2019. Initial evaluation found the head to be at a -3 station and not well applied to the cervix. She was given Pitocin via IV which brought the baby's head down. At approximately 1730 hrs. patient was 4 cm dilated, -3 station but with the head well applied to the cervix. She underwent artificial rupture membranes with resultant clear amniotic fluid. She delivered a meneses, viable, female with Apgars of 8 and 9, a weight of 3450 g (7 lbs. 10 oz.), length of 20.0 inches in a direct occiput anterior position over an intact perineum. Pitocin was increased 500 mL per hour per protocol to facilitate increase in uterine tone and decrease likelihood of bleeding. The baby was placed on mom's abdomen and nose and mouth bulb suctioned. The cord blood pulsate for approximately 2 minutes and then was clamped 2 and cut by the baby's father Zac. The umbilical cord had 3 vessels. Cord blood was obtained. The perineum was found to be intact. No suturing was required. The placenta delivered in a Crawley presentation, appeared intact and complete and was discarded per patient desire. Estimated blood loss was 100 mL. On the afternoon after her delivery patient reported acceptable headache, spots in her eyes and some nausea. Evaluation at that time showed normal vital signs. Blood pressure was entirely within normal limits. Neurological evaluation was unremarkable. Laboratory tests including a CBC and CMP. HEENT, neck and back within normal limits lungs are clear with good breath sounds in all lung crespo. Abdomen is flat, soft, nontender. Uterus is just below the umbilicus was firm and nontender. Legs are nontender to evidence of DVT.Deep tendon reflexes were within normal limits bilaterally in upper and lower extremities. Within the course of approximately 10 minutes as symptoms subsided and the patient did not have a recurrence of them throughout the remainder of her stay in hospital. At that time of discharge patient is doing well. She is comfortable with going home. Vital signs stable and she been afebrile. She desires discharge from hospital. Condition: Good. Patient plans to bottlefeed. Diagnosis: Stroke: No - Discharge Data Discharge Date: 06/23/19 Discharge Disposition: Home, Self-Care 01 Condition: Good - Referral to Home Health Primary Care Physician: Damon Rodriguez MD - Patient Instructions Diet: Regular Diet as Tolerated Activity: As Tolerated (No intercourse tampons until bleeding resolves) Driving: May Drive Today Showering/Bathing: May Shower (May take a bath) Notify Provider of: Fever, Increased Pain, Swelling and Redness, Nausea and/or Vomiting - Discharge Plan Home Medications: Home Meds Vit Calc,Iron,Folic [ Vitamins] 1 tab PO DAILY 11/24/17 [ History] Acetaminophen [Tylenol] 650 mg PO Q6H PRN tablet 11/25/17 [Rx] Acetaminophen [Tylenol] 650 mg PO Q4H PRN tablet 06/23/19 [Rx] Albuterol [Proventil HFA] 0 gm INH Q4H PRN inhaler 06/23/19 [Rx] Ibuprofen [Motrin] 600 mg PO Q4H PRN tablet 06/23/19 [Rx] Montelukast [Singulair] 10 mg PO DAILY tablet 06/23/19 [Rx] Referrals: Damon Rodriguez MD [Primary Care Provider] - (Return [facility] weeks.) - Discharge Summary/Plan Comment DC Time >30 min.: No Discharge Summary/Plan Comment: Discharge instructions: 1. Discharge home 2. Diet, activity and follow-up discussed with patient. Recommend nursing diet with increased calories and calcium. 3. Precautions given concern increased pain, bleeding, temperature, signs/ symptoms of DVT/PE. 4. Medications per home medication was printed, discussed with and given to the patient. 5. Return to clinic-Dr. Rodriguez[facility] in 2 weeks. Diagnosis: Term -delivered Condition: Good - Patient Data Vitals - Most Recent: Last Vital Signs Temp 37.1 C 06/23/19 04:07 Pulse 61 06/23/19 04:07 Resp 16 06/23/19 04:07 BP 109/65 06/23/19 04:07 Pulse Ox 98 06/23/19 04:07 Weight - Most Recent: 104.326 kg I&O - Last 24 hours: Intake & Output 06/22/19 06/22/19 06/23/19 14:59 22:59 06:59 Intake Total 420 Balance 420 Lab Results - Last 24 hrs: Laboratory Results - last 24 hr 06/22/19 06/22/19 Range/Units 17:18 17:18 WBC 9.08 (3.98-10.04) K/mm3 RBC 3.88 L (3.98-5.22) M/mm3 Hgb 11.8 (11.2-15.7) gm/dl Hct 35.9 (34.1-44.9) % MCV 92.5 (79.4-94.8) fl MCH 30.4 (25.6-32.2) pg MCHC 32.9 (32.2-35.5) g/dl RDW Std Deviation 45.7 (36.4-46.3) fL Plt Count 180 L (182-369) K/mm3 MPV 10.8 (9.4-12.3) fl Neut % (Auto) 63.0 (34.0-71.1) % Lymph % (Auto) 25.7 (19.3-51.7) % Sebastian % (Auto) 8.6 (4.7-12.5) % Eos % (Auto) 2.2 (0.7-5.8) Baso % (Auto) 0.2 (0.1-1.2) % Neut # (Auto) 5.72 (1.56-6.13) K/mm3 Lymph # (Auto) 2.33 (1.18-3.74) K/mm3 Sebastian # (Auto) 0.78 H (0.24-0.36) K/mm3 Eos # (Auto) 0.20 (0.04-0.36) K/mm3 Baso # (Auto) 0.02 (0.01-0.08) K/mm3 Sodium 142 (136-145) mEq/L Potassium 3.9 (3.5-5.1) mEq/L Chloride 109 H (98-107) mEq/L Carbon Dioxide 23 (21-32) mEq/L Anion Gap 13.9 (5-15) BUN 10 (7-18) mg/dL Creatinine 0.7 (0.55-1.02) mg/dL Est Cr Clr Drug Dosing 101.01 mL/min Estimated GFR (MDRD) > 60 (>60) mL/min BUN/Creatinine Ratio 14.3 (14-18) Glucose 111 H (74-106) mg/dL Calcium 8.1 L (8.5-10.1) mg/dL Total Bilirubin 0.2 (0.2-1.0) mg/dL AST 15 (15-37) U/L ALT 12 L (14-59) U/L Alkaline Phosphatase 84 (46-116) U/L Total Protein 5.7 L (6.4-8.2) g/dl Albumin 2.3 L (3.4-5.0) g/dl Globulin 3.4 gm/dL Albumin/Globulin Ratio 0.7 L (1-2) Med Orders - Current: Current Medications Acetaminophen (Tylenol) 650 mg PO Q4H PRN PRN Reason: mild pain or fever Albuterol (Proventil Hfa) 0 gm INH Q4H PRN PRN Reason: SHORTNESS OF BREATH Benzocaine/Menthol (Dermoplast Pain Relief [place]) 0 gm TOP ASDIRECTED PRN PRN Reason: Perineal Comfort Measure Last Admin: 06/21/19 20:55 Dose: 1 canister Docusate Sodium (Colace) 100 mg PO BID PRN PRN Reason: Constipation Ibuprofen (Motrin) 600 mg PO Q4H PRN PRN Reason: Mild pain or fever Last Admin: 06/22/19 21:40 Dose: 600 mg Montelukast Sodium (Singulair) 10 mg PO DAILY [facility] [place] Last Admin: 06/22/19 09:04 Dose: Not Given Prenat Multivit/[place]/Iron/Folic Ac ( Plus Iron) 1 each PO DAILY [facility] Last Admin: 06/22/19 09:03 Dose: 1 each Witch Colette (Tucks) 1 pad TOP ASDIRECTED PRN PRN Reason: Perineal Comfort Measure Last Admin: 06/21/19 20:56 Dose: 1 container Discontinued Medications Lactated Ringer's (Ringers, Lactated) 1,000 mls @ 100 mls/hr IV ASDIRECTED [facility] [place] Last Admin: 06/21/19 12:55 Dose: 100 mls/hr Oxytocin/Lactated Ringer's (Pitocin In Lr 10 Units/1,000 Ml) 10 unit in 1,000 mls @ 500 mls/hr IV .CONTINUOUS [facility] [place] Oxytocin/Lactated Ringer's (Pitocin In Lr 10 Units/1,000 Ml) 10 unit in 1,000 mls @ 12 mls/hr IV TITRATE MAGAN; Protocol Last Titration: 06/21/19 18:24 Dose: 0 munits/min, 0 mls/hr Sodium Chloride (Saline Flush) 10 ml FLUSH ASDIRECTED PRN PRN Reason: Keep Vein Open
[2019-06-23] MEDS: Prenatal Multivitamin with Calcium/Folic Acid/Iron Tab PO SCH (13:09)
[2019-06-23] MEDS: Montelukast 10 MG Tab PO SCH (13:09)
== END 2019-06-23 09:40 | disposition home or self-care (01) | DRG 560 ==
LOC: JD.OBCHECK 11:21 → JD.OB 11:24 → OBSVTOIN 18:47
PROVIDERS: ADMIT Obstetrics & Gynecology; ATTEND Obstetrics & Gynecology
PROC: 10907ZC Drainage of Amniotic Fluid, Therapeutic from Products of Conception, Via Natural or Artificial Opening (ICD-10-PCS; principal; 2019-06-21)
PROC: 3E033VJ Introduction of Other Hormone into Peripheral Vein, Percutaneous Approach (ICD-10-PCS; 2019-06-21)
PROC: 10E0XZZ Delivery of Products of Conception, External Approach (ICD-10-PCS; 2019-06-21)
DX: O99.52 Diseases of the respiratory system complicating childbirth (principal); J45.909 Unspecified asthma, uncomplicated; Z3A.39 39 weeks gestation of pregnancy; Z37.0 Single live birth; Z79.899 Other long term (current) drug therapy; Z98.1 Arthrodesis status; Z79.51 Long term (current) use of inhaled steroids; Z87.891 Personal history of nicotine dependence
CPT/HCPCS: 36415; 59025; 59409; 80053; 85025; 85027; 86592; A9270-GY; J2590; J7120